=== PATIENT | female | born 1995 | race Caucasian/White ===

== ENCOUNTER 2017-10-19 14:21 | Emergency (ER) | payer SELFPAY ==
[~2017-10-19] VITALS: Ht 160 cm; Wt 79.8 kg
[~2017-10-19 14:21] MED LIST: NOHOMEMEDS
[2017-10-19 17:34] VITALS: BP 122/73
== END 2017-10-19 16:35 | disposition left against medical advice (07) ==
LOC: EME 14:21
DX: N93.9 Abnormal uterine and vaginal bleeding, unspecified (principal); Z53.21 Procedure and treatment not carried out due to patient leaving prior to being seen by health care provider